=== PATIENT | female | born 1935 | race Caucasian/White ===

== ENCOUNTER 2017-05-19 16:31 | Inpatient (IN) | payer OTHER ==
[~2017-05-19] VITALS: Ht 157.5 cm; Wt 79.4 kg
[2017-05-19] MEDS ORDERED: ARICEPT10 MG (16:48)
[2017-05-19] MEDS ORDERED: LISINOPRIL-HCT1 EAC1 (16:50)
[2017-05-19] MEDS ORDERED: GABAPENTIN800 MG (16:50)
[2017-05-19] MEDS ORDERED: TOPROL XL25 M1 (16:50)
[2017-05-19] MEDS ORDERED: ADULT ASPIRIN81 MG (16:51)
[2017-05-19] MEDS ORDERED: TRADJENTA5 MG (16:51)
[2017-05-19] MEDS ORDERED: SYNTHROID112 MCG (16:51)
[2017-05-19] MEDS ORDERED: AMLODIPINE BESYL5 MG (16:52)
[2017-05-19] MEDS ORDERED: LANTUS SOL100 UNIT/1 (16:53)
[2017-05-24] MEDS ORDERED: PANTOPRAZOLE SO40 MG PO (10:24)
== END 2017-05-24 14:29 | disposition home or self-care (01) | DRG 379 ==
LOC: ER 16:31 → ICU-2 22:20 → SURH 05-22 18:14
PROC: 30233N1 Transfusion of Nonautologous Red Blood Cells into Peripheral Vein, Percutaneous Approach (ICD-10-PCS; 2017-05-20)
PROC: 0DB58ZX Excision of Esophagus, Via Natural or Artificial Opening Endoscopic, Diagnostic (ICD-10-PCS; principal; 2017-05-22)
PROC: 0DB68ZX Excision of Stomach, Via Natural or Artificial Opening Endoscopic, Diagnostic (ICD-10-PCS; 2017-05-22)
DX: K92.1 Melena (principal); D50.0 Iron deficiency anemia secondary to blood loss (chronic); I10 Essential (primary) hypertension; E11.9 Type 2 diabetes mellitus without complications; K29.50 Unspecified chronic gastritis without bleeding

== ENCOUNTER 2019-08-30 09:23 | Outpatient (CLI) | payer OTHER ==
[~2019-08-30 09:23] MED LIST: ADULT ASPIRIN81 MG; AMLODIPINE BESYL5 MG; ARICEPT10 MG; GABAPENTIN800 MG; LANTUS SOL100 UNIT/1; LISINOPRIL-HCT1 EAC1; PANTOPRAZOLE SO40 MG PO; SYNTHROID112 MCG; TOPROL XL25 M1; TRADJENTA5 MG
== END 2019-08-30 09:30 | disposition home or self-care (01) ==
LOC: LAB 09:23
DX: I13.10 Hypertensive heart and chronic kidney disease without heart failure, with stage 1 through stage 4 chronic kidney disease, or unspecified chronic kidney disease (principal); Z60.2 Problems related to living alone; I70.209 Unspecified atherosclerosis of native arteries of extremities, unspecified extremity; I87.2 Venous insufficiency (chronic) (peripheral); I67.2 Cerebral atherosclerosis; I70.0 Atherosclerosis of aorta; E11.22 Type 2 diabetes mellitus with diabetic chronic kidney disease; E11.42 Type 2 diabetes mellitus with diabetic polyneuropathy; E11.59 Type 2 diabetes mellitus with other circulatory complications; E11.51 Type 2 diabetes mellitus with diabetic peripheral angiopathy without gangrene; Z79.4 Long term (current) use of insulin; E03.8 Other specified hypothyroidism; H27.03 Aphakia, bilateral; H43.393 Other vitreous opacities, bilateral; H52.203 Unspecified astigmatism, bilateral; K64.8 Other hemorrhoids; K80.20 Calculus of gallbladder without cholecystitis without obstruction; K76.0 Fatty (change of) liver, not elsewhere classified; R10.10 Upper abdominal pain, unspecified; N18.3 Chronic kidney disease, stage 3 (moderate); R80.8 Other proteinuria; N28.1 Cyst of kidney, acquired; Q87.19 Other congenital malformation syndromes predominantly associated with short stature; M79.7 Fibromyalgia; M17.9 Osteoarthritis of knee, unspecified; M81.0 Age-related osteoporosis without current pathological fracture; M54.14 Radiculopathy, thoracic region; M51.37 Other intervertebral disc degeneration, lumbosacral region; M51.27 Other intervertebral disc displacement, lumbosacral region; M79.661 Pain in right lower leg; M25.561 Pain in right knee; S83.203S Other tear of unspecified meniscus, current injury, right knee, sequela; M71.21 Synovial cyst of popliteal space [Baker], right knee; R41.3 Other amnesia; F68.11 Factitious disorder imposed on self, with predominantly psychological signs and symptoms; G60.8 Other hereditary and idiopathic neuropathies; I69.90 Unspecified sequelae of unspecified cerebrovascular disease; N63.0 Unspecified lump in unspecified breast; B07.8 Other viral warts; L57.0 Actinic keratosis; E55.9 Vitamin D deficiency, unspecified; R63.5 Abnormal weight gain; Z68.36 Body mass index [BMI] 36.0-36.9, adult; Z86.010 Personal history of colon polyps; Z85.830 Personal history of malignant neoplasm of bone; N39.0 Urinary tract infection, site not specified; E53.8 Deficiency of other specified B group vitamins; D50.8 Other iron deficiency anemias; E78.2 Mixed hyperlipidemia

== ENCOUNTER 2020-03-13 09:24 | Outpatient (CLI) | payer OTHER | END 2020-03-13 09:36 | disposition home or self-care (01) | LOC: MRI 09:24 | PROVIDERS: ATTEND Internal Medicine | DX: S83.241A Other tear of medial meniscus, current injury, right knee, initial encounter (principal); M17.11 Unilateral primary osteoarthritis, right knee; I13.10 Hypertensive heart and chronic kidney disease without heart failure, with stage 1 through stage 4 chronic kidney disease, or unspecified chronic kidney disease; I70.209 Unspecified atherosclerosis of native arteries of extremities, unspecified extremity; I87.2 Venous insufficiency (chronic) (peripheral); I67.2 Cerebral atherosclerosis; I70.0 Atherosclerosis of aorta; E78.2 Mixed hyperlipidemia; E11.22 Type 2 diabetes mellitus with diabetic chronic kidney disease; Z60.2 Problems related to living alone; E11.42 Type 2 diabetes mellitus with diabetic polyneuropathy; E11.59 Type 2 diabetes mellitus with other circulatory complications; E11.51 Type 2 diabetes mellitus with diabetic peripheral angiopathy without gangrene; Z79.4 Long term (current) use of insulin; E03.8 Other specified hypothyroidism; H27.03 Aphakia, bilateral; H43.393 Other vitreous opacities, bilateral; H52.203 Unspecified astigmatism, bilateral; K64.8 Other hemorrhoids; K80.20 Calculus of gallbladder without cholecystitis without obstruction; K76.0 Fatty (change of) liver, not elsewhere classified; R10.10 Upper abdominal pain, unspecified; R80.8 Other proteinuria; N28.1 Cyst of kidney, acquired; M79.7 Fibromyalgia; M17.9 Osteoarthritis of knee, unspecified; M81.0 Age-related osteoporosis without current pathological fracture; M54.14 Radiculopathy, thoracic region; M51.37 Other intervertebral disc degeneration, lumbosacral region; M51.27 Other intervertebral disc displacement, lumbosacral region; M79.661 Pain in right lower leg; M25.561 Pain in right knee; S83.203S Other tear of unspecified meniscus, current injury, right knee, sequela; M71.21 Synovial cyst of popliteal space [Baker], right knee; M79.671 Pain in right foot; S96.91 Strain of unspecified muscle and tendon at ankle and foot level; S92.352A Displaced fracture of fifth metatarsal bone, left foot, initial encounter for closed fracture; R41.3 Other amnesia; F68.11 Factitious disorder imposed on self, with predominantly psychological signs and symptoms; G60.3 Idiopathic progressive neuropathy; R55 Syncope and collapse; I69.90 Unspecified sequelae of unspecified cerebrovascular disease; B07.8 Other viral warts; L57.0 Actinic keratosis; E55.9 Vitamin D deficiency, unspecified; R63.5 Abnormal weight gain; Z86.010 Personal history of colon polyps; Z85.830 Personal history of malignant neoplasm of bone | CPT/HCPCS: 73721 ==

== ENCOUNTER 2020-09-15 07:22 | Outpatient (CLI) | payer OTHER | END 2020-09-15 07:30 | disposition home or self-care (01) | LOC: MRI 07:22 | PROVIDERS: ATTEND Internal Medicine Gastroenterology | DX: K80.20 Calculus of gallbladder without cholecystitis without obstruction (principal); R10.10 Upper abdominal pain, unspecified | CPT/HCPCS: 74181 ==

== ENCOUNTER → 2020-09-18 10:22 | Outpatient (CLI) | payer OTHER | END | disposition home or self-care (01) | LOC: NUCLEAR 10:00 | PROVIDERS: ATTEND Internal Medicine | DX: I83.893 Varicose veins of bilateral lower extremities with other complications (principal); I87.2 Venous insufficiency (chronic) (peripheral) ==

== ENCOUNTER → 2021-01-23 08:25 | Outpatient (CLI) | payer OTHER | END | disposition home or self-care (01) | LOC: LAB 08:25 | PROVIDERS: ATTEND Internal Medicine | DX: I13.10 Hypertensive heart and chronic kidney disease without heart failure, with stage 1 through stage 4 chronic kidney disease, or unspecified chronic kidney disease (principal); Z60.2 Problems related to living alone; I70.208 Unspecified atherosclerosis of native arteries of extremities, other extremity; I87.2 Venous insufficiency (chronic) (peripheral); I67.2 Cerebral atherosclerosis; I70.0 Atherosclerosis of aorta; E78.2 Mixed hyperlipidemia; G63 Polyneuropathy in diseases classified elsewhere; E11.22 Type 2 diabetes mellitus with diabetic chronic kidney disease; E11.59 Type 2 diabetes mellitus with other circulatory complications; E11.51 Type 2 diabetes mellitus with diabetic peripheral angiopathy without gangrene; Z79.4 Long term (current) use of insulin; E03.8 Other specified hypothyroidism; H27.03 Aphakia, bilateral; H43.393 Other vitreous opacities, bilateral; H52.203 Unspecified astigmatism, bilateral; K64.8 Other hemorrhoids; K80.20 Calculus of gallbladder without cholecystitis without obstruction; K76.0 Fatty (change of) liver, not elsewhere classified; R10.10 Upper abdominal pain, unspecified; R10.84 Generalized abdominal pain; K80.50 Calculus of bile duct without cholangitis or cholecystitis without obstruction; R80.8 Other proteinuria; N28.1 Cyst of kidney, acquired; M79.7 Fibromyalgia; M17.0 Bilateral primary osteoarthritis of knee; M81.0 Age-related osteoporosis without current pathological fracture; M54.14 Radiculopathy, thoracic region; M51.37 Other intervertebral disc degeneration, lumbosacral region; M51.27 Other intervertebral disc displacement, lumbosacral region; S83.203S Other tear of unspecified meniscus, current injury, right knee, sequela; M71.21 Synovial cyst of popliteal space [Baker], right knee; S96.91 Strain of unspecified muscle and tendon at ankle and foot level; M79.672 Pain in left foot; M25.579 Pain in unspecified ankle and joints of unspecified foot; R41.3 Other amnesia; G60.3 Idiopathic progressive neuropathy; R55 Syncope and collapse; I69.90 Unspecified sequelae of unspecified cerebrovascular disease; B07.8 Other viral warts; L57.0 Actinic keratosis; E83.19 Other disorders of iron metabolism; R63.5 Abnormal weight gain; Z68.36 Body mass index [BMI] 36.0-36.9, adult; Z86.010 Personal history of colon polyps; Z85.830 Personal history of malignant neoplasm of bone; D64.89 Other specified anemias; N39.0 Urinary tract infection, site not specified; E53.8 Deficiency of other specified B group vitamins ==

== ENCOUNTER → 2021-02-13 10:04 | Outpatient (CLI) | payer OTHER | END | disposition home or self-care (01) | LOC: LAB 10:04 | PROVIDERS: ATTEND Podiatrist Foot & Ankle Surgery | DX: B35.1 Tinea unguium (principal); L97.512 Non-pressure chronic ulcer of other part of right foot with fat layer exposed; L03.031 Cellulitis of right toe; M20.41 Other hammer toe(s) (acquired), right foot; E10.51 Type 1 diabetes mellitus with diabetic peripheral angiopathy without gangrene; L60.0 Ingrowing nail; L60.2 Onychogryphosis ==

== ENCOUNTER 2021-03-17 10:08 | Outpatient (CLI) | payer OTHER | END 2021-03-17 10:19 | disposition home or self-care (01) | LOC: RAD 10:08 | PROVIDERS: ATTEND Podiatrist Foot & Ankle Surgery | DX: L97.512 Non-pressure chronic ulcer of other part of right foot with fat layer exposed (principal); L03.031 Cellulitis of right toe; M20.41 Other hammer toe(s) (acquired), right foot; I13.10 Hypertensive heart and chronic kidney disease without heart failure, with stage 1 through stage 4 chronic kidney disease, or unspecified chronic kidney disease; I70.208 Unspecified atherosclerosis of native arteries of extremities, other extremity; I87.2 Venous insufficiency (chronic) (peripheral); I67.2 Cerebral atherosclerosis; I70.0 Atherosclerosis of aorta; E78.2 Mixed hyperlipidemia; G63 Polyneuropathy in diseases classified elsewhere; E11.22 Type 2 diabetes mellitus with diabetic chronic kidney disease; E11.59 Type 2 diabetes mellitus with other circulatory complications; E11.51 Type 2 diabetes mellitus with diabetic peripheral angiopathy without gangrene; Z79.4 Long term (current) use of insulin; E03.8 Other specified hypothyroidism; H27.03 Aphakia, bilateral; H43.393 Other vitreous opacities, bilateral; H52.203 Unspecified astigmatism, bilateral; K64.8 Other hemorrhoids; K80.20 Calculus of gallbladder without cholecystitis without obstruction; K76.0 Fatty (change of) liver, not elsewhere classified; R10.10 Upper abdominal pain, unspecified; R10.84 Generalized abdominal pain; K80.50 Calculus of bile duct without cholangitis or cholecystitis without obstruction; R80.8 Other proteinuria; N28.1 Cyst of kidney, acquired; M79.7 Fibromyalgia; M17.5 Other unilateral secondary osteoarthritis of knee; M81.0 Age-related osteoporosis without current pathological fracture; M54.14 Radiculopathy, thoracic region; M51.37 Other intervertebral disc degeneration, lumbosacral region; S83.203S Other tear of unspecified meniscus, current injury, right knee, sequela; S96.91 Strain of unspecified muscle and tendon at ankle and foot level; S92.352A Displaced fracture of fifth metatarsal bone, left foot, initial encounter for closed fracture; M79.672 Pain in left foot; M25.579 Pain in unspecified ankle and joints of unspecified foot; M25.512 Pain in left shoulder; R41.3 Other amnesia; G60.3 Idiopathic progressive neuropathy; R55 Syncope and collapse; I69.90 Unspecified sequelae of unspecified cerebrovascular disease; B07.8 Other viral warts; L57.0 Actinic keratosis; E55.9 Vitamin D deficiency, unspecified; R63.5 Abnormal weight gain; Z86.010 Personal history of colon polyps; Z85.830 Personal history of malignant neoplasm of bone ==

== ENCOUNTER 2021-10-04 07:01 | Outpatient (CLI) | payer OTHER | END 2021-10-04 07:16 | disposition home or self-care (01) | LOC: LAB 07:01 | DX: E78.2 Mixed hyperlipidemia (principal); D50.8 Other iron deficiency anemias; Z12.11 Encounter for screening for malignant neoplasm of colon; E55.9 Vitamin D deficiency, unspecified; D52.9 Folate deficiency anemia, unspecified; E11.22 Type 2 diabetes mellitus with diabetic chronic kidney disease; E11.42 Type 2 diabetes mellitus with diabetic polyneuropathy; E11.59 Type 2 diabetes mellitus with other circulatory complications; E11.51 Type 2 diabetes mellitus with diabetic peripheral angiopathy without gangrene; E11.69 Type 2 diabetes mellitus with other specified complication; E11.618 Type 2 diabetes mellitus with other diabetic arthropathy; E03.8 Other specified hypothyroidism; K76.0 Fatty (change of) liver, not elsewhere classified; K64.9 Unspecified hemorrhoids; N28.1 Cyst of kidney, acquired; N18.31 Chronic kidney disease, stage 3a; I13.10 Hypertensive heart and chronic kidney disease without heart failure, with stage 1 through stage 4 chronic kidney disease, or unspecified chronic kidney disease; N39.0 Urinary tract infection, site not specified ==

== ENCOUNTER 2021-10-04 08:05 | Outpatient (CLI) | payer OTHER | END 2021-10-04 14:12 | disposition home or self-care (01) | LOC: MAMO-SONO 08:05 | DX: N60.21 Fibroadenosis of right breast (principal); N60.22 Fibroadenosis of left breast; I13.10 Hypertensive heart and chronic kidney disease without heart failure, with stage 1 through stage 4 chronic kidney disease, or unspecified chronic kidney disease; Z12.31 Encounter for screening mammogram for malignant neoplasm of breast ==

== ENCOUNTER 2021-11-03 07:18 | Outpatient (CLI) | payer OTHER | END 2021-11-03 07:19 | disposition home or self-care (01) | LOC: NUCLEAR 07:18 | PROVIDERS: ATTEND Internal Medicine | DX: M17.9 Osteoarthritis of knee, unspecified (principal); M75.102 Unspecified rotator cuff tear or rupture of left shoulder, not specified as traumatic; M79.672 Pain in left foot; I70.209 Unspecified atherosclerosis of native arteries of extremities, unspecified extremity; Z88.5 Allergy status to narcotic agent | CPT/HCPCS: 78306; A9503 ==